=== PATIENT | male | born 1995 | race Caucasian/White ===

== ENCOUNTER 2016-08-22 23:27 | Emergency (ER) | payer OTHER ==
[~2016-08-22] VITALS: Ht 177.8 cm; Wt 56.7 kg
[~2016-08-22 23:27] MED LIST: AUGMENTIN 875-1 EACH PO
--- NOTE | 2016-08-23 01:06 | ED GENERAL ADULT ---
History of Present Illness General Chief Complaint: ETOH/Drug Related Complaint Stated Complaint: DRUG USE PER MOM Source: patient, MOTHER Exam Limitations: VERY RELUCTANT HISTORIAN Vital Signs & Intake/Output Vital Signs & Intake/Output Vital Signs Date Time Temp Pulse Resp B/P B/P Pulse O2 O2 Flow FiO2 Mean Ox Delivery Rate 08/22 2333 100.0 100 18 127/89 99 Room Air ED Intake and Output 08/23 0000 08/22 1200 Intake Total Output Total Balance Patient 125 lb Weight Weight Reported by Patient Measurement Method Allergies Coded Allergies: No Known Allergies (07/16/15) Reconcile Medications Amoxicillin/Potassium Clav (Augmentin 875-125 Tablet) 1 EACH TABLET 1 TAB PO BID PPX Triage Note: PT TO TRIAGE WITH HIS MOTHER FOR FEELING HOPELESS PER PT "LOST GIRLFIEND AND JOB BECAUSE OF DRUGS" PT HAS BEEN USING HEROIN FOR ABOUT 8 MONTH, +HEAVY ETOH USE. 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 PT CRYING IN TRIAGE. DENIES SI/HI. VSS. Triage Nurses Notes Reviewed? yes HPI: Patient presents for evaluation of heroin and alcohol use. The patient is extremely reluctant historian, becoming frustrated with even simple questioning. He states he uses "whenever I can get" regarding the heroin. He states his been using heroin off and on for about 5 years. She was alcohol is concerned he drinks about a fifth of liquor daily and has been doing this for years. Past History Travel History Traveled to [place] past 21 day No Medical History Any Pertinent Medical History? see below for history Surgical History Surgical History: N Psychosocial History What is your primary language Palauan Tobacco Use: Current Daily Use Daily Tobacco Use Amount/Type: => 5 Cigarettes daily ETOH Use: heavy use Illicit Drug Use: heroin Family History Hx Contributory? No Review of Systems Review of Systems Constitutional: Reports: no symptoms. EENTM: Reports: no symptoms. Respiratory: Reports: no symptoms. Cardiovascular: Reports: no symptoms. GI: Reports: no symptoms. Genitourinary: Reports: no symptoms. Musculoskeletal: Reports: no symptoms. Skin: Reports: no symptoms. Neurological/Psychological: Reports: no symptoms, other. Hematologic/Endocrine: Reports: no symptoms. Immunologic/Allergic: Reports: no symptoms. All Other Systems: Reviewed and Negative Physical Exam Physical Exam General Appearance: SEE BELOW Comments: General: Alert, calm, cooperative Head: Normocephalic, atraumatic Eyes: Normal inspection, no nystagmus, EOMI Ears: Normal inspection Nose: Normal inspection Throat: Moist mucosa Neck: Supple, no goiter Heart: Regular rate and rhythm, no murmurs rubs or gallops Lungs: Clear to auscultation bilaterally with good air entry Abdomen: Soft nontender nondistended, normal bowel sounds Chest: Nontender Extremities: Normal range of motion grossly, no tremors present, no cyanosis clubbing or edema of the upper extremities Neurologic: cranial nerves II through XII grossly intact, speech clear, gait normal Psychiatric: No apparent delusions or hallucinations, no pressured speech or thought blocking, short tempered and profane at times Core Measures ACS in differential dx? No CVA/TIA Diagnosis: No Severe Sepsis Present: No Septic Shock Present: No Progress Differential Diagnoses I considered the following diagnoses in my evaluation of the patient: Alcohol dependence, opiate dependence, poly-pharmaceutical drug abuse Plan of Care: Orders Procedure Date/time Status CIWA 08/23 210 Active URINE DRUG SCREEN FOR ER ONLY 08/23 113 Active LIPASE 08/23 113 Complete ETHANOL 08/23 113 Complete COMPREHENSIVE METABOLIC PANEL 08/23 113 Complete CBC WITHOUT DIFFERENTIAL 08/23 113 Complete Laboratory Tests 08/23/16 0125: Anion Gap 13, Estimated GFR > 60, BUN/Creatinine Ratio 15.0, Glucose 85, Calcium 9.5, Total Bilirubin 1.4 H, AST 19, ALT 38, Alkaline Phosphatase 57, Total Protein 6.9, Albumin 4.7, Globulin 2.2, Albumin/Globulin Ratio 2.1, Lipase 23, CBC w Diff NO MAN DIFF REQ, RBC 4.50 L, MCV 89.4, MCH 30.6, RDW 12.4, MPV 7.8, Gran % 78.5 H, Lymphocytes % 12.0 L, Monocytes % 8.3, Eosinophils % 0.2, Basophils % 1.0, Absolute Granulocytes 11.1 H, Absolute Lymphocytes 1.7, Absolute Monocytes 1.2 H, Absolute Eosinophils 0, Absolute Basophils 0.1, PUBS MCHC 34.3, Serum Alcohol 28.0 Initial ED EKG: none Comments: 08/23/2016 2:15:43 AM I have updated Aguilar on his test results. Unfortunately he does not meet qualification for alcohol detox. He states he does not drink daily (contrary to what he confirmed during history taking) and so I think it is very unlikely that he would qualify for alcohol detox anyway. Regarding the heroin use, and notified him that typically the insurance companies will not cover this. However I did offer to look into this possibility given that his insurance [employer]. He declined this. I will provide him as much information on outpatient programs as possible. Of note I feel the patient is clinically sober and capable of medical decision making. Departure Departure Disposition: HOME OR SELF CARE Condition: Stable Clinical Impression Primary Impression: Heroin abuse Referrals: PATIENT HAS NO PRIMARY CARE DR (PCP/Family) Additional Instructions: Follow-up with the detox program as soon as possible. Contact the [facility] practice and arrange for primary care physician and appointment for general medical evaluation. Return if any concerns or sudden worsening. Departure Forms: Customer Survey DETOX FACILITIES LIST General Discharge Information Critical Care Note Critical Care Note Critical Care Time: non-applicable
[2016-08-23 01:33] LABS: ABSOLUTE BASOPHIL COUNT 0.1 /CUMM (0.0-0.2); ABSOLUTE EOSINOPHIL COUNT 0 /CUMM (0.0-0.7); ABSOLUTE GRANULOCYTE CT 11.1 /CUMM (1.4-6.5); ABSOLUTE LYMPH COUNT 1.7 /CUMM (1.2-3.4); ABSOLUTE MONOCYTE COUNT 1.2 /CUMM (0.10-0.60); EOSINOPHIL % 0.2 % (0-5); GRANULOCYTE % 78.5 % (42.2-75.2); HEMATOCRIT 40.2 % (42-52); MEAN CORPUSCULAR HGB 30.6 PG (27.0-31.0); MEAN CORPUSCULAR HGB CONC 34.3 G/DL (33.0-37.0); MEAN CORPUSCULAR VOLUME 89.4 FL (80.0-94.0); MEAN PLATELET VOLUME 7.8 FL (7.4-10.4); PLATELET COUNT 239 /CUMM (130-400); RBC DISTRIBUTION WIDTH 12.4 % (11.5-14.5); WHITE BLOOD CELL COUNT 14.1 /CUMM (4.8-10.8)
[2016-08-23 02:22] VITALS: BP 132/88
== END 2016-08-23 02:28 ==
LOC: ERH 23:27
PROVIDERS: Emergency Medicine
DX: F11.10 Opioid abuse, uncomplicated (principal)
CPT/HCPCS: 80307; G0480